=== PATIENT | female | born 1935 | race Caucasian/White ===

== ENCOUNTER → 2016-10-03 | Day surgery (SDC) | payer MEDICARE, OTHER ==
[~2016-10-03] VITALS: Ht 162.6 cm; Wt 66.4 kg
[2016-10-03 09:06] LABS: HCT 36.1 % (37.0-47.0); MCH 29.3 pg (25.0-31.0); MCHC 33.2 g/dL (32.0-36.0); MPV 10.2 fL (6.0-9.5); RBC 4.1 M/uL (4.20-5.40); RDW 14.1 % (11.5-14.0); WBC 5.3 K/uL (4.0-10.5)
[2016-10-03 09:32] LABS: ALBUMIN 3.6 g/dL (3.4-4.8); BILIRUBIN - TOTAL 0.4 mg/dL (0.1-1.0); CREATININE 0.7 mg/dL (0.5-1.0); GLOBULIN (CALCULATION) 4.2 g/dL (2.2-4.2); POTASSIUM 4.4 mmol/L (3.5-5.1); TOTAL PROTEIN 7.8 g/dL (6.4-8.3)
== END | disposition home or self-care (01) ==
LOC: FAS 09:02
PROVIDERS: Surgery
DX: D64.9 Anemia, unspecified (principal); K58.9 Irritable bowel syndrome, unspecified; M19.90 Unspecified osteoarthritis, unspecified site; M41.9 Scoliosis, unspecified; M81.0 Age-related osteoporosis without current pathological fracture; Z96.649 Presence of unspecified artificial hip joint; Z81.1 Family history of alcohol abuse and dependence; Z82.3 Family history of stroke; Z82.0 Family history of epilepsy and other diseases of the nervous system; Z79.899 Other long term (current) drug therapy
CPT/HCPCS: 36415; 80053; 88305; 88311; 88313; J2704